=== PATIENT | female | born 1970 | race Caucasian/White ===

== ENCOUNTER 2018-02-01 11:26 | Emergency (ER) | payer OTHER ==
[~2018-02-01] VITALS: Ht 165.1 cm; Wt 59.0 kg
--- NOTE | 2018-02-01 11:43 | PHYS DOC ---
General Chief Complaint: LOWER EXTREMITY EDEMA Stated Complaint: LOWER EXTREMITY PAIN Time Seen by MD: 11:28 Source: patient Exam Limitations: no limitations Problems: History of Present Illness Initial Comments 47-year-old female comes to the ED at her doctor's request to rule out DVT. Patient states that she's had left calf pain since . Denies any trauma or other inciting event, states that the pain has worsened since and she feels as if there is some swelling. She also states that her left foot feels cold, she called her doctor and was referred to the ED for an ultrasound evaluation. After discussion she denies any DVT risk factors and denies any chest pain palpitations dyspnea headache or focal neurologic deficits. Timing/Duration: other Severity: moderate Modifying Factors: worse with movement, improves with rest Associated Symptoms: other Allergies: Coded Allergies: No Known Drug Allergies (Unverified , 02/01/18) Past Medical History Medical History: no pertinent history, other (hypothyroidism, migraine headaches, jaw pain, osteoarthritis, anxiety, allergic rhinitis) Surgical History: other (splenectomy) Social History Smoker: non-smoker Alcohol: occasionally Drugs: none Review of Systems Constitutional: denies chills, denies fever, denies malaise Respiratory: denies cough, denies shortness of breath Cardiovascular: denies chest pain, denies palpitations Gastrointestinal: denies nausea, denies vomiting Musculoskeletal: see HPI, denies back pain Psychiatric/Neurological: denies numbness, denies paresthesia, denies weakness Hematologic/Lymphatic: denies blood clots, denies easy bleeding, denies easy bruising Physical Exam General Appearance: WD/WN, no apparent distress Ear, Nose, Throat: hearing grossly normal, normal ENT inspection Respiratory: normal breath sounds, no respiratory distress Extremities: normal range of motion, no pedal edema, pelvis stable, other ( positive Homans sign left calf no discernible swelling or erythema, no palpable subcutaneous abnormalities) Neurologic/Psychiatric: 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 PHYSICIAN: ESPERANZA BOOGIE DO REASON: L calf pain sent by her Dr r/o DVT PROCEDURE: VENOUS LOWER EXTREMITY LEFT Left Lower Extremity Venous Doppler Ultrasound Indication: Left lower extremity pain. Comparison: None. Procedure: Color Doppler, spectral Doppler, and grayscale images with and without compression are obtained in the area of the common femoral vein, superficial femoral vein - femoral vein junction, main femoral vein (superficial femoral vein) and popliteal vein. Veins of the proximal calf are also imaged. Findings: There is normal duplex flow, color flow and compressibility of all visualized vein segments. There is no evidence of deep venous thrombosis. Impression: No evidence of left lower extremity deep venous thrombosis. Electronically signed by: Bello Dixon MD (02/01/2018 12:15 PM) [place] [id number] DICTATED AND SIGNED BY: BELLO DIXON MD DATE: 02/01/18 1214 CC: CHIRAG HOLCOMB MD; ESPERANZA BOOGIE DO ~ I discussed muscle strain, activity modification, [id number] and prescription medications. Patient's questions were answered to her satisfaction she expressed agreement and understanding with treatment plan as listed below. Departure Time of Disposition: 12:20 Disposition: 01 HOME, SELF-CARE Diagnosis: muscle strain left calf Condition: GOOD Patient Instructions: Muscle Strain, [id number] Additional Instructions: Activity as tolerated. Heating pad to affected area 15-20 minutes 4-6 times daily followed by gentle stretching. [id number] Tylenol and ibuprofen as needed. Follow-up with your doctor in 2 weeks for recheck if needed. Return to ED with new or changing symptoms. ESPERANZA BOOGIE DO Feb 01, 2018 11:43
--- NOTE | 2018-02-01 12:18 | RAD ---
Left Lower Extremity Venous Doppler Ultrasound Indication: Left lower extremity pain. Comparison: None. Procedure: Color Doppler, spectral Doppler, and grayscale images with and without compression are obtained in the area of the common femoral vein, superficial femoral vein - femoral vein junction, main femoral vein (superficial femoral vein) and popliteal vein. Veins of the proximal calf are also imaged. Findings: There is normal duplex flow, color flow and compressibility of all visualized vein segments. There is no evidence of deep venous thrombosis. Impression: No evidence of left lower extremity deep venous thrombosis. Electronically signed by: Bello Mejia MD (02/01/2018 12:15 PM) [place] [id number]
[2018-02-01 12:30] VITALS: BP 109/69
== END 2018-02-01 12:45 | disposition home or self-care (01) ==
LOC: ER 11:26
DX: S86.912A Strain of unspecified muscle(s) and tendon(s) at lower leg level, left leg, initial encounter (principal); E03.9 Hypothyroidism, unspecified; G43.909 Migraine, unspecified, not intractable, without status migrainosus; M19.90 Unspecified osteoarthritis, unspecified site; F41.9 Anxiety disorder, unspecified; X58.XXXA Exposure to other specified factors, initial encounter; Y93.89 Activity, other specified; Y99.8 Other external cause status; Y92.89 Other specified places as the place of occurrence of the external cause
CPT/HCPCS: 93971; 99284-25

== ENCOUNTER 2018-07-07 13:29 | Emergency (ER) | payer OTHER ==
[~2018-07-07] VITALS: Ht 162.6 cm; Wt 59.1 kg
--- NOTE | 2018-07-07 14:21 | ED.ADGEN ---
Past History Past Medical History: Endometriosis, Migraines Past Surgical History: Hysterectomy, Tonsillectomy Alcohol Use: Occasionally Drug Use: None Adult General Chief Complaint Chief Complaint Right-sided abdominal pain HPI HPI Patient is a 47-year-old female presents with intermittent lower quadrant/ pelvic pain for the past several days. Patient is a multiple days pain-free but pain returned this morning. Pain is described as sharp, aching, radiating to right lower flank. It is associated with nausea. No hematuria, dysuria or frequency. Pain is moderate to severe and worse with bending over and palpation. Reports migraine headache since last evening. Sumatriptan taken with limited relief. Previous hysterectomy and splenectomy. Reports some constipation. No other acute symptoms or complaints.[] Review of Systems Review of Systems Review symptoms as per history of present illness. All other review symptoms are negative. All other systems were reviewed and found to be within normal limits, except as documented in this note. Current Medications Current Medications Current Medications Medications (Trade) Dose Ordered Sig/Yoan Start Time Stop Time Status Last Admin Dose Admin Fentanyl Citrate (Fentanyl 2ml Vial) 50 mcg 1X ONCE 07/07/18 14:30 07/07/18 14:32 DC 07/07/18 14:33 50 MCG Info (Do NOT chart on this entry -- for MONITORING) 1 each PRN DAILY PRN 07/07/18 15:15 07/09/18 15:14 Iohexol (Omnipaque 300 Mg/ml) 75 ml 1X ONCE 07/07/18 15:15 07/07/18 15:16 DC 07/07/18 15:14 75 ML Ketorolac Tromethamine (Toradol 15mg Vial) 15 mg 1X ONCE 07/07/18 14:30 07/07/18 14:32 DC 07/07/18 14:32 15 MG Metoclopramide HCl (Reglan) 10 mg 1X ONCE 07/07/18 16:30 07/07/18 16:31 DC 07/07/18 17:18 10 MG Morphine Sulfate (Morphine 4mg Syringe) 4 mg STK-MED ONCE 07/07/18 17:21 07/07/18 17:23 DC Ondansetron HCl (Zofran) 4 mg 1X ONCE 07/07/18 14:30 07/07/18 14:32 DC 07/07/18 14:29 4 MG Prochlorperazine Edisylate (Compazine) 10 mg 1X ONCE 07/07/18 16:30 07/07/18 16:31 DC 07/07/18 17:19 10 MG Sodium Chloride 1,000 ml @ 1,000 mls/hr 1X ONCE 07/07/18 16:30 07/07/18 17:29 DC 07/07/18 17:19 1,000 MLS/HR Allergies Allergies Allergies Coded Allergies Type Severity Reaction Last Updated Verified No Known Drug Allergies 07/07/18 No Physical Exam Physical Exam Constitutional: Well developed, well nourished, discomfort secondary to pain.[] HENT: Normocephalic, atraumatic, bilateral external ears normal, oropharynx moist, no oral exudates, nose normal. [] Eyes: PERRLA, EOMI, conjunctiva normal, no discharge. [] Neck: Normal range of motion, no tenderness, supple, no stridor. [] Cardiovascular:Heart rate regular rhythm, no murmur [] Lungs & Thorax: Bilateral breath sounds clear to auscultation [] Abdomen: Bowel sounds normal, soft, or quadrant pain, tenderness, positive McBurney's.. [] Skin: Warm, dry, no erythema, no rash. [] Back: No tenderness, no CVA tenderness. [] Extremities: No tenderness, no cyanosis, no clubbing, ROM intact, no edema. [] Neurologic: Alert and oriented X 3, normal motor function, normal sensory function, no focal deficits noted. [] Psychologic: Affect normal, judgement normal, mood normal. [] Current Patient Data Vital Signs Vital Signs Date Time Temp Pulse Resp B/P (MAP) Pulse Ox O2 Delivery O2 Flow Rate FiO2 07/07/18 17:25 18 07/07/18 14:33 98 Room Air 07/07/18 13:29 98.2 66 Lab Results Laboratory Tests Test 07/07/18 14:23 07/07/18 16:03 White Blood Count 8.4 x10^3/uL (4.0-11.0) Red Blood Count 4.22 x10^6/uL (3.50-5.40) Hemoglobin 14.0 g/dL (12.0-15.5) Hematocrit 41.5 % (36.0-47.0) Mean Corpuscular Volume 98 fL (79-100) Mean Corpuscular Hemoglobin 33 pg (25-35) Mean Corpuscular Hemoglobin Concent 34 g/dL (31-37) Red Cell Distribution Width 13.0 % (11.5-14.5) Platelet Count 389 x10^3/uL (140-400) Neutrophils (%) (Auto) 75 % (31-73) H Lymphocytes (%) (Auto) 18 % (24-48) L Monocytes (%) (Auto) 6 % (0-9) Eosinophils (%) (Auto) 0 % (0-3) Basophils (%) (Auto) 1 % (0-3) Neutrophils # (Auto) 6.3 x10^3uL (1.8-7.7) Lymphocytes # (Auto) 1.5 x10^3/uL (1.0-4.8) Monocytes # (Auto) 0.5 x10^3/uL (0.0-1.1) Eosinophils # (Auto) 0.0 x10^3/uL (0.0-0.7) Basophils # (Auto) 0.1 x10^3/uL (0.0-0.2) Sodium Level 143 mmol/L (136-145) Potassium Level 4.2 mmol/L (3.5-5.1) Chloride Level 107 mmol/L (98-107) Carbon Dioxide Level 26 mmol/L (21-32) Anion Gap 10 (6-14) Blood Urea Nitrogen 12 mg/dL (7-20) Creatinine 0.9 mg/dL (0.6-1.0) Estimated GFR (Cockcroft-Gault) 67.4 BUN/Creatinine Ratio 13 (6-20) Glucose Level 105 mg/dL (70-99) H Calcium Level 9.2 mg/dL (8.5-10.1) Total Bilirubin 0.5 mg/dL (0.2-1.0) Aspartate Amino Transferase (AST) 19 U/L (15-37) Alanine Aminotransferase (ALT) 23 U/L (14-59) Alkaline Phosphatase 49 U/L (46-116) Total Protein 7.1 g/dL (6.4-8.2) Albumin 3.9 g/dL (3.4-5.0) Albumin/Globulin Ratio 1.2 (1.0-1.7) Urine Collection Type Unknown Urine Color Yellow Urine Clarity Hazy Urine pH 8.0 Urine Specific Divide 1.015 Urine Protein 30 mg/dl (NEG-TRACE) Urine Glucose (UA) Neg mg/dL (NEG) Urine Ketones (Stick) >=160 mg/dL (NEG) Urine Blood Neg (NEG) Urine Nitrite Neg (NEG) Urine Bilirubin Neg (NEG) Urine Urobilinogen Dipstick 0.2 mg/dL (0.2 mg/dL) Urine Leukocyte Esterase Neg (NEG) Urine RBC 1-2 /HPF (0-2) Urine WBC Occ /HPF (0-4) Urine Squamous Epithelial Cells Mod /LPF Urine Bacteria 0 /HPF (0-FEW) Urine Mucus Marked /LPF EKG EKG [] Radiology/Procedures Radiology/Procedures [CT abd/pelvis: There is regular dizziness cities within the gallbladder consistent with cholelithiasis. Mild gallbladder distention with wall thickening suspicious for cholecystitis. Comp plus cystic lesions in right pelvis, could represent large right ovarian cyst. No adjacent stranding of fat to suggest acute inflammatory process. Cystic neoplasm is not excluded. Appendix normal per radiology report Pelvic ultrasound: Pending] Course & Med Decision Making Course & Med Decision Making Pertinent Labs and Imaging studies reviewed. (See chart for details) [Right lower quadrant pain/elbow pain with normal normal-appearing appendix and incidental finding of lithiasis/possible mild cholecystitis on CT scan. Right upper quadrant pain, shoulder. Plain nausea or postprandial symptoms on history or exam. Complex cyst noted on right with free fluid. Ultrasound to evaluate for possible torsion. Anticipate discharge home if negative from torsion with close [facility] follow-up and general surgical referral for evaluation of gallbladder disease.] Final Impression Final Impression [1. Right lower abdominal pain 2. Complex Right ovarian cyst-like mass 3. Biliary disease] Dragon Disclaimer Dragon Disclaimer This electronic medical record was generated, in whole or in part, using a voice recognition dictation system. BIJU CORONA DO Jul 07, 2018 14:21
[2018-07-07] MEDS ORDERED: KETOROLAC 15 MG/ML VIAL. IV ONE (14:30)
[2018-07-07] MEDS ORDERED: ONDANSETRON PF 4 MG/2 ML VIAL. IV ONE (14:30)
[2018-07-07 14:36] LABS: BASO # 0.1 x10^3/uL (0.0-0.2); BASO % 1 % (0-3); EOS % 0 % (0-3); HEMATOCRIT 41.5 % (36.0-47.0); LYMPH # 1.5 x10^3/uL (1.0-4.8); LYMPH % 18 % (24-48); MEAN CORPUSCULAR HEMOGLOBIN 33 pg (25-35); MEAN CORPUSCULAR HGB CONC 34 g/dL (31-37); MEAN CORPUSCULAR VOLUME 98 fL (79-100); MONO # 0.5 x10^3/uL (0.0-1.1); MONO % 6 % (0-9); NEUT # 6.3 x10^3uL (1.8-7.7); NEUT % 75 % (31-73); PLATELET COUNT 389 x10^3/uL (140-400); RED BLOOD COUNT 4.22 x10^6/uL (3.50-5.40); WHITE BLOOD COUNT 8.4 x10^3/uL (4.0-11.0)
[2018-07-07 14:51] LABS: ALBUMIN 3.9 g/dL (3.4-5.0); ALBUMIN/GLOBULIN RATIO 1.2 (1.0-1.7); CALCIUM 9.2 mg/dL (8.5-10.1); CREATININE 0.9 mg/dL (0.6-1.0); GFR 67.4; POTASSIUM 4.2 mmol/L (3.5-5.1); TOTAL BILIRUBIN 0.5 mg/dL (0.2-1.0); TOTAL PROTEIN 7.1 g/dL (6.4-8.2)
[2018-07-07] MEDS ORDERED: CONTRAST GIVEN MC PRN (15:15)
[2018-07-07] MEDS ORDERED: IOHEXOL 300 MG/ML 75 ML VIAL. IV ONE (15:15)
--- NOTE | 2018-07-07 15:47 | RAD ---
CT ABD PELV W/ IV CONTRST ONLY Indication: RLQ PAIN TIMES 3 DAYS WITH NAUSEA
75MLS OMNI 300 IV CONTRAST Exposure: One or more of the following individualized dose reduction techniques were utilized for this examination: 1. Automated exposure control 2. Adjustment of the mA and/or kV according to patient size 3. Use of iterative reconstruction technique. Comparison: None are available. Contrast: Intravenous contrast was given. No oral contrast per request. FINDINGS: Lower thorax: Lung bases are clear. Liver: Small low-density lesion anteriorly, measures 9 mm, and 15 Hounsfield units, most likely a cyst. Spleen: Not visualized. There is some suture material identified in the left splenic fossa. Pancreas: Unremarkable Adrenals:No evidence of mass. Kidneys: Symmetric enhancement. There is some apparent cortical atrophy at the anterior left kidney with a focal solid appearing calcification. Gallbladder: Mildly distended. Mild wall thickening. Numerous internal densities, likely irregular gallstones. Lymph nodes: No significant enlargement Vessels: * Aorta: Nonaneurysmal * Mesenteric: Patent * Portal venous: Patent GI tract: Mild retained stool in the colon. No bowel obstruction. No evidence of acute colitis. Appendix is normal. Reproductive organs: Patient has reportedly had a hysterectomy. There is a cystic lesion in the right pelvis, measuring 8.2 cm long axis. And measuring fluid Hounsfield units, compatible with a cyst. There is some internal septation and mild irregular density compatible with complexity. Urinary bladder: Unremarkable. Peritoneum: No evidence of pneumoperitoneum. No free fluid. Abdominal wall:Unremarkable Spine: Vertebral body height and alignment are intact. Bones: No destructive process identified. IMPRESSION: 1. Numerous irregular densities within the gallbladder, most compatible with cholelithiasis. Mild gallbladder distention with wall thickening, suspicious for cholecystitis. 2. Complex cystic lesion right pelvis. This could represent a large ovarian cyst. No adjacent stranding in the fat to suggest an acute inflammatory process. Cystic neoplasm is not excludable. Pelvic ultrasound could further evaluate. Electronically signed by: Bello Farnsworth MD (07/07/2018 3:43 PM) [facility]
[2018-07-07] MEDS ORDERED: METOCLOPRAMIDE 10 MG TABLET PO ONE (16:30)
[2018-07-07] MEDS ORDERED: IV NORMAL SALINE 1,000ML 1,000 ML IV ONE (16:30)
[2018-07-07] MEDS ORDERED: PROCHLORPERAZINE 10 MG/2 ML VIAL. IV ONE (16:30)
[2018-07-07 16:32] LABS: BACTERIA,URINE 0 /HPF (0-FEW); BILIRUBIN,URINE NEG (NEG); CLARITY,URINE HAZY; COLOR,URINE YELLOW; GLUCOSE,URINE NEG (NEG); NITRITE,URINE NEG (NEG); SQUAMOUS EPITHELIAL CELL,UR MOD /LPF; UROBILINOGEN,URINE 0.2 mg/dL (0.2 mg/dL); WBC,URINE OCC /HPF (0-4)
[2018-07-07] MEDS ORDERED: MORPHINE SULFATE 4 MG/ML DISP.SYRIN. ONE (17:21)
[2018-07-07] MEDS ORDERED: MORPHINE SULFATE 4 MG/ML DISP.SYRIN. IV ONE (17:30)
[2018-07-07] MEDS ORDERED: HYDR-963 PO (17:48)
--- NOTE | 2018-07-07 17:53 | RAD ---
Ultrasound pelvis complete and transvaginal ultrasound pelvis HISTORY: Cystic lesion pelvis seen on same-day CT Sonographic examination of the pelvis was performed by transabdominal and endovaginal technique. Multiple static images were obtained. Ultrasound pelvis complete transabdominal: The urinary bladder is collapsed limiting the evaluation. There is multiple cysts in the right ovary. Transvaginal ultrasound pelvis: The right ovary measures 8.7 x 6.1 x 5.2 cm. There are 4 cysts in the right ovary the largest measures 4.6 x 4.7 x 3.9 cm. There is a complex cyst with internal echoes measures 2.6 x 2.8 x 1.9 cm. There is normal ovarian blood flow. The left ovary appears normal with normal blood flow and measures 2.0 x 1.0 x 1.9 cm. There is a trace of simple cysts fluid in the pelvis. The uterus is not seen consistent with previous hysterectomy. IMPRESSION: Multiple cysts in the right ovary. Recommend correlation with CA-125 and a three-month follow-up ultrasound. Electronically signed by: Tacho Easton III, MD (07/07/2018 5:49 PM) [facility]
[2018-07-07 18:07] VITALS: BP 94/55
== END 2018-07-07 18:07 | disposition home or self-care (01) ==
LOC: ER 13:29
DX: N83.201 Unspecified ovarian cyst, right side (principal); K83.9 Disease of biliary tract, unspecified; K80.20 Calculus of gallbladder without cholecystitis without obstruction; G43.909 Migraine, unspecified, not intractable, without status migrainosus; Z90.710 Acquired absence of both cervix and uterus
CPT/HCPCS: 36415; 74177; 76830; 76856; 80053; 81001; 85025; 96374; 96375; 99285; J0780; J1885; J2270; J2405; J3010; J8597; Q9967; J7030